=== PATIENT | female | born 1995 | race Caucasian/White ===

== ENCOUNTER 2017-03-01 22:13 | Emergency (ER) | payer OTHER, MEDICAID ==
[2017-03-01 22:18] VITALS: BP 130/89
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
[2017-03-01] MEDS ORDERED: Ibuprofen ADULT LIQ* 600 MG/30 ML UDC PO ONE (23:25)
[2017-03-02] MEDS ORDERED: Ibuprofen TAB* 600 MG ONE (00:54)
--- NOTE | 2017-03-02 07:50 | RAD ---
INDICATION: Left hand injury. TECHNIQUE: 4 views of the left hand were obtained. FINDINGS: The bones are in normal alignment. No fracture is seen. Joint spaces appear maintained. IMPRESSION: NO EVIDENCE FOR FRACTURE. IF THE PATIENT'S SYMPTOMS PERSIST RECOMMEND FOLLOW-UP IMAGING.
== END 2017-03-02 00:50 | disposition home or self-care (01) ==
LOC: ED 22:13
DX: S69.92XA Unspecified injury of left wrist, hand and finger(s), initial encounter (principal); W22.8XXA Striking against or struck by other objects, initial encounter; Y93.9 Activity, unspecified; Y92.811 Bus as the place of occurrence of the external cause; F41.0 Panic disorder [episodic paroxysmal anxiety]; F32.9 Major depressive disorder, single episode, unspecified; F43.10 Post-traumatic stress disorder, unspecified; Z88.1 Allergy status to other antibiotic agents; Z87.891 Personal history of nicotine dependence
CPT/HCPCS: 99282; A9270-GY

== ENCOUNTER 2019-01-23 15:48 | Emergency (ER) | payer OTHER, MEDICAID ==
[2019-01-23 15:59] VITALS: BP 141/93
--- NOTE | 2019-01-23 17:05 | UC ---
Upper Extremity HPI - HPI Summary HPI Summary: 23 year old female with no PMH presents with right sided shoulder pain x 2-3 days. 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 Has had similar pain in past, however not as severe. No numbness, tingling, no decreased strength. hand works well. no prior injuries, no trauma. - History of Current Complaint Chief Complaint: UCUpperExtremity Stated Complaint: SHOULDER, NECK PAIN Time Seen by Provider: 01/23/19 16:44 Hx Obtained From: Patient Hx Last Menstrual Period: 12/22/18 ?: No Onset/Duration: Sudden Onset, Lasting Days Severity Initially: Moderate Severity Currently: Severe Pain Intensity: 6 Pain Scale Used: 0-10 Numeric Location Of Pain: Is Discrete @ - right shoulder Aggravating Factor(s): Movement Alleviating Factor(s): Rest Associated Signs And Symptoms: Negative: Weakness, Numbness/Tingling - Allergies/Home Medications Allergies/Adverse Reactions: Allergies Allergy/AdvReac Type Severity Reaction Status Date / Time amoxicillin Allergy Intermediate Unknown Verified 01/23/19 15:59 Reaction Details Home Medications: Home Medications Norethindrone-E.estradiol-Iron [Melodetta 24 Fe Chewable Tab] 1 chw PO DAILY WITH MEAL 01/23/19 [History Confirmed 01/23/19] PMH/Surg Hx/FS Hx/Imm Hx Previously Healthy: Yes - Surgical History Surgical History: None Surgery Procedure, Year, and Place: Minor skin surgery- removal of cyst (10/2014 ) - Family History Known Family History: Positive: Other - depression, Non-Contributory - Social History Alcohol Use: Weekly Alcohol Amount: every other weekend at parties, drinks "to get drunk." Substance Use Type: Marijuana Smoking Status (MU): Former Smoker - Immunization History Most Recent Influenza Vaccination: declined flu shot Most Recent Tetanus Shot: unknown Most Recent Pneumonia Vaccination: never Review of Systems All Other Systems Reviewed And Are Negative: Yes Constitutional: Negative: Fever, Chills, Fatigue Skin: Negative: Bruising Respiratory: Negative: Cough Cardiovascular: Negative: Chest Pain Musculoskeletal: Positive: Arthralgia, Decreased ROM, Myalgia. Negative: Edema Neurological: Positive: Negative Psychological: Positive: Negative Is Patient Immunocompromised?: No Physical Exam Triage Information Reviewed: Yes Appearance: Well-Appearing, No Pain Distress, Well-Nourished Vital Signs: Initial Vital Signs Temp 96.8 F 01/23/19 15:56 Pulse 97 01/23/19 15:56 Resp 18 01/23/19 15:56 BP 141/93 01/23/19 15:56 Pulse Ox 100 01/23/19 15:56 Vital Signs Reviewed: Yes Eyes: Positive: Conjunctiva Clear ENT: Positive: Hearing grossly normal Neurological: Positive: Other: - RIght shoulder with TTP superior to scapular spine, over trap, mild SCM tenderness, + biceps tenderness, + speed, neg infraspin testing, neg bear, neg belly, 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 full cervical motion, no cervical spine tenderness. rad/ ulnar pulses 2+ b/l. SITLT. full elbow ROM, strength. Psychological Exam: Normal Skin Exam: Normal Upper Extremity Course/Dx - Course Course Of Treatment: Tendonitis - Increase fluid intake while taking Motrin - Flexeril as needed for muscle spasms - Increase rest - Heat/ Ice as needed - Work note given - Follow up with orthopedics within 5-7 days if no improvement - Go to ER with increased pain, numbness, decreased strength - Differential Dx/Diagnosis Differential Diagnosis/HQI/PQRI: Strain, Sprain Provider Diagnosis: Tendonitis of shoulder, Muscle strain Discharge ED - Sign-Out/Discharge Documenting (check all that apply): Patient Departure All imaging exams completed and their final reports reviewed: No Studies - Discharge Plan Condition: Good Disposition: HOME Prescriptions: Cyclobenzaprine TAB* [Flexeril 10 MG TAB*] 10 mg PO TID PRN #15 tab PRN Reason: muscle spasm Ibuprofen ADULT LIQ* [Motrin LIQ ADULT*] 600 mg PO QID #[id number] mg Patient Education Materials: Muscle Strain (ED) Forms: *Work Release Referrals: No Primary Care Phys,[facility]OPCP [Primary Care Provider] - [facility] [Outside] Additional Instructions: - Increase fluid intake while taking Motrin - Flexeril as needed for muscle spasms - Increase rest - Heat/ Ice as needed - Work note given - Follow up with orthopedics within 5-7 days if no improvement - Go to ER with increased pain, numbness, decreased strength - Billing Disposition and Condition Condition: GOOD Disposition: Home - Attestation Statements Provider Attestation: Per institutional requirements, I have reviewed the chart, however, I was not consulted specifically or made aware of this patient by the midlevel provider. I did not personally evaluate, interact with , or disposition this patient.
== END 2019-01-23 17:25 | disposition home or self-care (01) ==
LOC: UCEAST 15:48
DX: M75.91 Shoulder lesion, unspecified, right shoulder (principal); S46.911A Strain of unspecified muscle, fascia and tendon at shoulder and upper arm level, right arm, initial encounter; Z88.0 Allergy status to penicillin; Z87.891 Personal history of nicotine dependence; X50.0XXA Overexertion from strenuous movement or load, initial encounter; Y93.89 Activity, other specified; Y92.89 Other specified places as the place of occurrence of the external cause; Y99.0 Civilian activity done for income or pay
CPT/HCPCS: 99212; G0463

== ENCOUNTER 2019-05-06 21:40 | Emergency (ER) | payer OTHER, MEDICAID ==
--- OUTSIDE RECORDS SUMMARY | 2019-05-06 22:05 | XMS REPORT | Summary of Care ---
:1995 Author Organization [facility] Address [address] [place] [address] Care Team Providers Name Role Phone None, [place] Primary Care Provider Unavailable Reason for Referral Refer to Department Only (Routine) Status Reason Specialty Diagnoses / Referred By Referred To Procedures Contact Contact Pending Review DERMATOLOGY / Diagnoses Dermatitis Gloria, Dermatology YENNI Perkins [address] [place] [address] Reason for Visit Reason Comments Establish Care joint pain, skin issues, headaches, losing hair Encounter Details Date Type Department Care Team Description 05/02/2019 Office Visit [place] Maddie Izquierdo, Dermatitis ( Primary Dx); Practice [employer] Encounter to establish care [address] [facility] [address] [place], [place] [id number] [place] [address] [phone] Allergies Active Allergy Reactions Severity Noted Date Comments Amoxicillin Unknown Reaction 06/09/2018 documented as of this encounter (statuses as of 05/02/2019) Medications Medication Sig Dispensed Refills Start Date End Date Status methylphenidate (RITALIN) Take 5 mg by 0 Active 5 MG Oral Tab mouth TWO TIMES DAILY NEEDED. Ferrous Sulfate (IRON Take 1 Tab by 0 Active HIGH-POTENCY) 325 MG Oral mouth DAILY. Tab Norethin Robert-Eth Take by mouth 0 Active Estrad-FE (MELODETTA 24 DAILY. FE) 1-20 MG-MCG(24) Oral Chew Tab hyoscyamine (LEVSIN Take 1 Tab by 120 Tab 3 06/15/2018 Active SL/PO) 0.125 MG mouth FOUR Sublingual SL Tab TIMES DAILY. Omeprazole 40 MG Oral Take 1 Cap by 30 Cap 3 06/15/2018 Active CAPSULE DELAYED RELEASE mouth DAILY. documented as of this encounter (statuses as of 05/02/2019) Active Problems Problem Noted Date Former smoker 06/09/2018 Diarrhea 06/09/2018 Anemia 06/09/2018 documented as of this encounter (statuses as of 05/02/2019) Social History Tobacco Use Types Packs/Day Years Used Date Former Smoker Quit: 2016 Smokeless Tobacco: Never Used Alcohol Use Drinks/Week oz/Week Comments Not Currently Sex Assigned at Date Recorded Not on file Job Start Date Occupation Industry Not on file Not on file Not on file Travel History Travel Start Travel End No recent travel history available. documented as of this encounter Last Filed Vital Signs Vital Sign Reading Time Taken Comments Blood Pressure 128/66 05/02/2019 9:01 AM EST Pulse 51 05/02/2019 9:01 AM EST Temperature 36.8 05/02/2019 9:01 AM EST C (98.2 F) Respiratory Rate - - Oxygen Saturation 99% 05/02/2019 9:01 AM EST Inhaled Oxygen Concentration - - Weight 99.3 kg (219 lb) 05/02/2019 9:01 AM EST Height 170.2 cm (5' 7") 05/02/2019 9:01 AM EST Body Mass Index 34.3 05/02/2019 9:01 AM EST documented in this encounter Patient Instructions Patient InstructionsMaddie Csatro NP - 05/02/2019 9:00 AM ESTDo lab work today. Referral is in for dermatology - please work on scheduling this on your way out today. Follow up will depend on results. Think about the pap smear - [facility] And schedule a physical exam at some point please. For Eczema - Use an emollient cream - such as Cetaphil or Cerave - daily. Take a bath daily with warm water (not too hot) and for no longer than 10 minutes. Use a mild, scent free soap. Pat dry with a towel (no rubbing). Apply cream right after bathing while your skin is still slightly damp. You can use hydrocortisone cream over the counter on spots that flare up - use once or twice daily before putting on the emollient cream for up to 2 weeks. Avoid triggers - such as heat, low humidity, stress, and allergens Using a humidifier can be helpful. Patient Education Eczema (Atopic Dermatitis) The Basics Written by the doctors and editors at [facility] What is eczema? Eczema is a skin condition that makes your skin itchy and flaky. Doctors do not know what causes it. Eczema often happens in people who have allergies. It can also run in families. Another term for eczema is "atopic dermatitis." What are the symptoms of eczema? The symptoms of eczema can include: Intense itching Redness Small bumps Skin that flakes off or forms scales Most people with eczema have their first symptoms before they turn 5. But eczema can look different in people of different ages: In babies, eczema tends to affect the front of the arms and legs, cheeks, or scalp. (The diaperarea is not usually affected.) In older children andadults, eczema often affects the sides of the neck, the elbow creases, andthe backs of the knees. Adults can also get it on their wrists, hands, forearms, and face. In older children and adults, the skin can become thick and dark, and can even form scars from too much scratching. Is there a test for eczema? No, there is no test. But doctors and nurses can tell if you haveeczema it by looking at your skin and by asking you questions. What can I do to reduce my symptoms? Use unscented thick moisturizing creams and ointments tokeep the skin from getting too dry. Also, try to avoid things that can make eczema worse, such as: Having dry skin that has not been treated with moisturizing creams or ointments Being too hot or sweating too much Being in very dry air Stress or worry Sudden temperature changes Harsh soaps or cleaning products Perfumes Wool or synthetic fabrics (like polyester) How is eczema treated? There are treatments that can relieve the symptoms of eczema. But the condition cannot be cured. Even so, about half of children with eczema grow out of it by the time they become adults. The treatments for eczema include: Moisturizing creams or ointments These products help keep your skin moist. In some cases, your doctor or nurse might suggest using a moist dressing over special creams or medicines. It helps to put on your cream or ointment right after a bath or shower. Some people also try products that you put in the bathtub, such as oil or oatmeal. But these have been found not to help with eczema symptoms. Steroid creams and ointments These are not the same as the steroids athletes some athletes take illegally. They go on the skin, and they relieve itching and redness. (In severe cases, you might need steroids in pills. But your doctor or nurse will want to take you off steroid pills as soonas possible. Even though these medicines help, they can also cause problems of their own.) Medicines that change the way the immune system works These medicines are only for people who do not get better with safer treatment options. Antihistamine pills Antihistamines are the medicines people often take for allergies. Some people with eczema find that antihistamines relieve itching. Others do not think the medicines do any good. Many people with eczema find that itching is worst at night. That can make it hard to sleep. If you have this problem, talk with your doctor or nurse about it. He or she might recommend an antihistamine that can also help with sleep. Light therapy Another treatment option is something called "light therapy," but doctors do not use it much. During light therapy, your skin is exposed to a special kind of light called ultraviolet light. This therapy is usually done in a doctor's office. Light therapy can help with eczema but experts worry that it might increase a person's risk for skincancer. Doctors usually recommend it for people who do not get better with other treatments. Talk to your doctor or nurse if your eczema is making you feel very anxious or sad. There are treatments that can help. Can eczema be prevented? Maybe. Babies who have a parent, brother, or sister with eczema havea higher risk of getting it, too. In these babies, using moisturizing creams or ointments (starting right after ) might help prevent eczema during the first year. But doctors don't yet know if this also helps prevent eczema later on. All topics are updated as new evidence becomes available and our peer review process is complete. This topic retrieved from [employer] on: Feb 06, 2019. Topic 42867 Version 13.0 Release: 27.4.5 - C27.318 2019 [employer]. and/or its affiliates. All rights reserved. Consumer Information Use and Disclaimer This information is not specific medical advice and does not replace information you receive from your health care provider. This is only a brief summary of general information. It does NOT include allinformation about conditions, illnesses, injuries, tests, procedures, treatments, therapies, discharge instructions or life-style choices that may apply to you. You must talk with your health care provider for complete information about your health and treatment options. This information should not beused to decide whether or not to accept your health care provider's advice, instructions or recommendations. Only your health care provider has the knowledge and training to provide advice that is right for you.The use of [employer] content is governed by the [employer] Terms of Use. 2019 [employer]. All rights reserved. Copyright 2019 [employer]. and/or its affiliates. All rights reserved. documented in this encounter Progress Notes Maddie Castro NP - 05/02/2019 9:00 AM EST PATIENT: Shi Mojica : 1995 DATE OF SERVICE: 05/02/2019 Subjective SUBJECTIVE: Shi Mojica is a 23-y.o. female here to establish care. Prior PCP: [facility]. Not taking her insurance any longer. Current Concerns: Joint pain - both knees, right now left, but switches back and forth - x2 years. Went to health center at [facility] and told to lose weight. Knees stiff. Did an xray, normal. Getting progressively worse, can't fully straighten or bend her left leg - feels locked up, and can't put pressure on it. Stabbing pain inside the knee. Has to sleep with pillows under her leg. Any position for too long will start to hurt. Left one now for 2 months, in the past was the right one. Unable to kneel on her knees x2 years. Can't squat without pain. Also right shoulder - a couple of months ago just started hurting for a few days with no injury thatshe knows of - went to urgent care and thought it was work related, works at a [employer], thought repetitive, then also couldn't move her right arm for a bit. She was given musclerelaxers and told it will get better in a week or two, or follow up with pcp. Stiffness is now better, but took 1.5 months before she could use it normally. When picking up anything heavier than 10-15 lbs feels weak/unstable. Both hands, and all fingers starting to have pain in them. Sensitive to temperature or being held in one position for a long time - was a holding a spoon the other day for a period of time and then couldn't unbend her fingers. Jaw - if she opens her jaw too wide, jaw feels unstable, then her face swells up and she can't speaknormally for a bit - usually happens at night and then better by morning. Skin - eczema on hands - cracked, sometimes red dots and bumps, clear dots on the palms of her handsif she poked them clear fluid will come out. Forearms 2 weeks ago had either eczema or hives. Hands bleed from the cracks. Getting pits and dents on her nails. Hair is falling out of her legs - no where else. Has not shaved her legs in years, and there is large patches of missing hair on her legs. Not putting any products on her legs. No hair loss anywhere else. Lab work was done in June at [facility]: ESR = 40 KAHLIL = 1:80 CRP = 16.98 Chronic Conditions: Depression/Anxiety: therapist every week. Specialists: GI - Gissel Rodrigues, [employer] - Diarrhea - no underlying pathology, recommended FODMAP diet and prn follow up. Wasn't able to afford the diet and couldn't make the changes. Still having problems although not as bad. She realized that lying down exacerbated so now up more during the day and this is helpful. Stopped taking the omeprazole and the levsin - although these helped at the time. Health Maintenance: On control to help regulate her period. Had an ultrasound with some kind of polyp. No pcos,thyroid was ok. Pap (21-65): Never had. Past Medical History: Diagnosis Date Anemia Anxiety Depression Disorder of function of stomach Family History Problem Relation Age of Onset Alcohol/Drug Mother Arthritis Father RA Asthma Sister Asthma Brother No Known Problems Brother Cancer No family history Current Outpatient Medications Medication Sig Ferrous Sulfate (IRON HIGH-POTENCY) 325 MG Oral Tab Take 1 Tab by mouth DAILY. hyoscyamine (LEVSIN SL/PO) 0.125 MG Sublingual SL Tab Take 1 Tab by mouth FOUR TIMES DAILY. methylphenidate (RITALIN) 5 MG Oral Tab Take 5 mg by mouth TWO TIMES DAILY NEEDED. Norethin Robert-Eth Estrad-FE (MELODETTA 24 FE) 1-20 MG-MCG(24) Oral Chew Tab Take by mouth DAILY. Omeprazole 40 MG Oral CAPSULE DELAYED RELEASE Take 1 Cap by mouth DAILY. No current facility-administered medications for this visit. Allergies Allergen Reactions Amoxicillin Unknown Reaction Social History Socioeconomic History Marital status: Single Spouse name: Not on file Number of children: Not on file Years of education: Not on file Highest education level: Not on file Occupational History Not on file Social Needs Financial resource strain: Not on file Food insecurity Worry: Not on file Inability: Not on file Transportation needs Medical: Not on file Non-medical: Not on file Tobacco Use Smoking status: Former Smoker Last attempt to quit: 2017 Years since quittin.0 Smokeless tobacco: Never Used Substance and Sexual Activity Alcohol use: Not Currently Drug use: Yes Types: Marijuana Sexual activity: Yes Partners: Female control/protection: Pill Lifestyle Physical activity Days per week: Not on file Minutes per session: Not on file Stress: Not on file Relationships Social connections Talks on phone: Not on file Gets together: Not on file Attends mormonism service: Not on file Active member of club or organization: Not on file Attends meetings of clubs or organizations: Not on file Relationship status: Not on file Intimate partner violence Fear of current or ex partner: Not on file Emotionally abused: Not on file Physically abused: Not on file Forced sexual activity: Not on file Other Topics Concern Not on file Social History Narrative Lives with partner. Works at [employer] REVIEW OF SYSTEMS: Review of Systems Constitutional: Positive for malaise/fatigue. Respiratory: Negative for cough and shortness of breath. Cardiovascular: Negative for chest pain and palpitations. Musculoskeletal: Positive for back pain, joint pain, myalgias and neck pain. Skin: Positive for rash. Negative for itching. See hpi Neurological: Negative for dizziness, tremors, speech change and headaches. Psychiatric/Behavioral: Positive for depression. Negative for substance abuse and suicidal ideas. The patient is not nervous/anxious. Objective OBJECTIVE: BP 128/66 (BP Location: Left arm, Patient Position: Sitting) | Pulse 51 | Temp 98.2 F (36.8 C) (Tympanic) | Ht 5' 7" (1.702 m) | Wt 219 lb ( 99.3 kg) | SpO2 99% | BMI 34.30 kg/m Physical Exam Vitals signs and nursing note reviewed. Constitutional: General: She is not in acute distress. Appearance: Normal appearance. She is well-developed, well-groomed and overweight. Cardiovascular: Rate and Rhythm: Normal rate and regular rhythm. Heart sounds: Normal heart sounds. No murmur. No friction rub. No gallop. Pulmonary: Effort: Pulmonary effort is normal. No respiratory distress. Breath sounds: Normal breath sounds. Skin: Comments: Dry cracked skin dorsal aspect bilat hands Small pits in finger nails, more on left hand than right Large patches of hair loss on bilat legs, no hair abnormalities elsewhere Neurological: Mental Status: She is alert. Psychiatric: Mood and Affect: Mood and affect normal. Speech: Speech normal. Behavior: Behavior normal. Behavior is cooperative. ASSESSMENT: ICD-9-CM ICD-10-CM 1. Dermatitis 692.9 L30.9 REFER TO DERMATOLOGY CELIAC DISEASE PANEL SEDIMENTATION RATE C-REACTIVE PROTEIN RHEUMATOID FACTOR ANTI NUCLEAR ANTIBODY COMPREHENSIVE METABOLIC PANEL CBC WITH DIFFERENTIAL THYROID STIMULATING HORMONE T3, TOTAL FREE T4 CELIAC DISEASE PANEL SEDIMENTATION RATE C-REACTIVE PROTEIN RHEUMATOID FACTOR ANTI NUCLEAR ANTIBODY COMPREHENSIVE METABOLIC PANEL CBC WITH DIFFERENTIAL THYROID STIMULATING HORMONE T3, TOTAL FREE T4 CELIAC DISEASE PANEL 2. Encounter to establish care V65.8 Z76.89 Plan PLAN: 1. Dermatitis Differentials include celiac, lupus, alopecia areata, thyroid. Will do blood work, refer to dermatology. Possible rheum referral depending on results. - REFER TO DERMATOLOGY; Future - CELIAC DISEASE PANEL; Future - SEDIMENTATION RATE; Future - C-REACTIVE PROTEIN; Future - RHEUMATOID FACTOR; Future - ANTI NUCLEAR ANTIBODY; Future - COMPREHENSIVE METABOLIC PANEL; Future - CBC WITH DIFFERENTIAL; Future - THYROID STIMULATING HORMONE; Future - T3, TOTAL; Future - FREE T4; Future - CELIAC DISEASE PANEL - SEDIMENTATION RATE - C-REACTIVE PROTEIN - RHEUMATOID FACTOR - ANTI NUCLEAR ANTIBODY - COMPREHENSIVE METABOLIC PANEL - CBC WITH DIFFERENTIAL - THYROID STIMULATING HORMONE - T3, TOTAL - FREE T4 - CELIAC DISEASE PANEL 2. Encounter to establish care Old records already in scans, no recent visits otherwise. Follow up will depend on results -Consider scheduling pap and physical, not enough time at todays OV to get to rest of health maintenance. Author: Maddie Castro NP 05/02/2019 11:07 documented in this encounter Plan of Treatment Name Type Priority Associated Diagnoses Date/Time CELIAC DISEASE PANEL Lab Routine Dermatitis 05/02/2019 10:29 AM EST SEDIMENTATION RATE Lab Routine Dermatitis 05/02/2019 10:29 AM EST C-REACTIVE PROTEIN Lab Routine Dermatitis 05/02/2019 10:29 AM EST RHEUMATOID FACTOR Lab Routine Dermatitis 05/02/2019 10:29 AM EST ANTI NUCLEAR ANTIBODY Lab Routine Dermatitis 05/02/2019 10:29 AM EST COMPREHENSIVE METABOLIC Lab Routine Dermatitis 05/02/2019 10:29 AM EST PANEL CBC WITH DIFFERENTIAL Lab Routine Dermatitis 05/02/2019 10:29 AM EST THYROID STIMULATING HORMONE Lab Routine Dermatitis 05/02/2019 10:29 AM EST T3, TOTAL Lab Routine Dermatitis 05/02/2019 10:29 AM EST FREE T4 Lab Routine Dermatitis 05/02/2019 10:29 AM EST CELIAC DISEASE PANEL Lab Routine Dermatitis 05/02/2019 10:29 AM EST Name Type Priority Associated Diagnoses Order Schedule CELIAC DISEASE PANEL Lab Routine Dermatitis Expected: 05/02/2019 (Approximate), Expires: 05/02/2020 SEDIMENTATION RATE Lab Routine Dermatitis Expected: 05/02/2019 (Approximate), Expires: 05/02/2020 C-REACTIVE PROTEIN Lab Routine Dermatitis Expected: 05/02/2019 (Approximate), Expires: 05/02/2020 RHEUMATOID FACTOR Lab Routine Dermatitis Expected: 05/02/2019 (Approximate), Expires: 05/02/2020 ANTI NUCLEAR ANTIBODY Lab Routine Dermatitis Expected: 05/02/2019 (Approximate), Expires: 05/02/2020 COMPREHENSIVE METABOLIC Lab Routine Dermatitis Expected: 05/02/2019 PANEL (Approximate), Expires: 05/02/2020 CBC WITH DIFFERENTIAL Lab Routine Dermatitis Expected: 05/02/2019 (Approximate), Expires: 05/02/2020 THYROID STIMULATING HORMONE Lab Routine Dermatitis Expected: 05/02/2019 (Approximate), Expires: 05/02/2020 T3, TOTAL Lab Routine Dermatitis Expected: 05/02/2019 (Approximate), Expires: 05/02/2020 FREE T4 Lab Routine Dermatitis Expected: 05/02/2019 (Approximate), Expires: 05/02/2020 Name Type Priority Associated Diagnoses Order Schedule REFER TO DERMATOLOGY Referral Routine Dermatitis Expected: 05/02/2019, Expires: 05/02/2020 Health Maintenance Due Date Last Done Comments CHLAMYDIA SCREENING 1995 DTaP/Tdap/Td Vaccines ( - 09/12/2006 Tdap) HPV IMMUNIZATION SERIES ( - 09/12/2006 Female 2-dose series) HIV SCREENING 09/12/2010 PAP SMEAR 09/12/2016 INFLUENZA VACCINE (#1) 2018 DEPRESSION SCREENING 05/02/2020 05/02/2019, 05/02/2019 HEPATITIS A IMMUNIZATION Aged Out No longer eligible based SERIES on patient's age to complete this topic MENINGOCOCCAL VACCINE IMM Aged Out No longer eligible based on patient's age to complete this topic PNEUMOCOCCAL 0-64 YRS Aged Out No longer eligible based on patient's age to complete this topic documented as of this encounter Results Not on filedocumented in this encounter Visit Diagnoses Diagnosis Dermatitis Contact dermatitis and other eczema, due to unspecified cause Encounter to establish care Other reasons for seeking consultation documented in this encounter Insurance Payer Benefit Plan / Subscriber ID Effective Dates Phone Address Type Group [place] xxxxxxxx 2018-Present [place] xxxxx[place] 2018-[place] documented as of this encounter
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
[2019-05-07] MEDS ORDERED: Al Hydrox/Mg Hydrox/Simet LIQ* 30 ML UDC PO ONE (00:53)
[2019-05-07] MEDS ORDERED: Lidocaine 2% VISCOUS* 15 ML UDC PO ONE (00:53)
[2019-05-07 01:17] VITALS: BP 133/74
== END 2019-05-07 01:16 | disposition home or self-care (01) ==
LOC: ED 21:40
DX: R13.10 Dysphagia, unspecified (principal); R06.02 Shortness of breath; Z88.0 Allergy status to penicillin; Z87.891 Personal history of nicotine dependence
CPT/HCPCS: 99282; A9270-GY

== ENCOUNTER 2019-05-08 22:38 | Emergency (ER) | payer OTHER, MEDICAID ==
--- OUTSIDE RECORDS SUMMARY | 2019-05-08 23:17 | XMS REPORT | Summary of Care ---
:1995 Author Organization [facility] Address [address] [place] [address] Care Team Providers Name Role Phone None, Welch Primary Care Provider Unavailable Reason for Visit Reason Comments ER F/U [facility] 05/06/19 for possible object in throat Encounter Details Date Type Department Care Team Description 05/08/2019 Office Visit [facility], Maddie, [facility] PLACEMENT DIRECTOR (Primary Dx) [address] [place] [address] [phone] Allergies Active Allergy Reactions Severity Noted Date Comments Amoxicillin Unknown Reaction 06/09/2018 documented as of this encounter (statuses as of 05/08/2019) Medications Medication Sig Dispensed Refills Start Date [...] as of this encounter (statuses as of 05/08/2019) Active Problems Problem Noted Date Former smoker 06/09/2018 Diarrhea 06/09/2018 Anemia 06/09/2018 documented as of this encounter (statuses as of 05/08/2019) Social History Tobacco Use Types Packs/Day Years Used Date Former Smoker Quit: 2017 Smokeless Tobacco: Never Used Alcohol Use Drinks/Week oz/Week Comments Not Currently Sex Assigned at Date Recorded Not on file Job Start Date Occupation Industry Not on file Not on file Not on file Travel History Travel Start Travel End No recent travel history available. documented as of this encounter Last Filed Vital Signs Vital Sign Reading Time Taken Comments Blood Pressure 126/72 05/08/2019 10:17 AM EST Pulse 102 05/08/2019 10:17 AM EST Temperature 37.7 05/08/2019 10:17 AM EST C (99.8 F) Respiratory Rate - - Oxygen Saturation 98% 05/08/2019 10:17 AM EST Inhaled Oxygen Concentration - - Weight 97.5 kg (215 lb) 05/08/2019 10:17 AM EST Height 170.2 cm (5' 7") 05/08/2019 10:17 AM EST Body Mass Index 33.67 05/08/2019 10:17 AM EST documented in this encounter Patient Instructions Patient InstructionsMaddie Castro NP - 05/08/2019 10:00 AM ESTEndoscopy is tomorrow (05/09/19) at 12:45 pm. No food or drink for 6 hours prior (per Dr. Cancino you can have small sips of clear liquids but nothingelse). In the meantime, if you develop any trouble breathing, or you start having difficulty with your secretions (you can't swallow your saliva) please go back to the ER. documented in this encounter Progress Notes Maddie Castro NP - 05/08/2019 10:00 AM EST PATIENT: Shi Mojica : 1995 DATE OF SERVICE: 05/08/2019 CHIEF COMPLAINT: Chief Complaint Patient presents with ER F/U [facility] 05/06/19 for possible object in throat Subjective HISTORY OF PRESENT ILLNESS: Shi Mojica is a 23-y.o. female. HPI Review of the hospitalization: I am seeing for transition of care following Emergency Room evaluation at [facility]. The date of emergency room visit was 05/06/19 I reviewed the emergency room note, discharge instructions, and pertinent additional documentation obtained during the visit. I reconciled the medications. Eating a hamburger on 05/05/19 and felt a piece lodge in her throat. Has very slowly moved lower in her throat. Went to the ED on 05/06/19 because she felt like she couldn't breath as easily and the feeling was making her anxious. Not able to eat anything solid because it gets stuck in her throat, is able to eat soft foods like yogurt and soup. Feels like "breathing around something". Nothing in lungs. Able to manage her secretions. No imaging done, no labs done. ER gave her a GI cocktail with lidocaine which numbed her throat, then dc home with advise to followup with PCP in 3 days - she originally made an appointment for Tuesday but was called by us yesterdayto move her appointment up to today. Pain in throat started yesterday afternoon, worse when trying to eat. Speech is normal - thinks mildly hoarse. Does not feel like any problems with lungs. The tests that were not available at the time of discharge were reviewed. Additional tests which are not yet available include: N/a no testing done. Past Medical History: Diagnosis Date Anemia Anxiety [...] file Gets together: Not on file Attends zoroastrianism service: Not on file Active member of [...] History Narrative Lives with partner. Works at [employer] (on [employer] Over the last 2 weeks, have you been feeling down, depressed, anxious, or hopeless?: 3 Over the past 2 weeks, have you felt little interest or pleasure in doing things ?: 3 Trouble falling or staying asleep, or sleeping too much?: 2 Feeling tired or having little energy?: 3 Poor appetite or overeating?: 3 Feeling bad about yourself or that you are a failure or have let yourself or your family down?: 1 Trouble concentrating on things, such as reading the newspaper or watching TV?: 0 Moving or speaking so slowly that other people notice OR being fidgety and restless?: 0 Thoughts that you would be better off or of hurting yourself in some way?: 0 PHQ-9 TOTAL SCORE: 15 How difficult have these problems made it for you to do your work, take care of things at home or get along with people?: Somewhat difficult In the past 2 years, have you felt depressed or sad most days, even if you felt ok?: Yes REVIEW OF SYSTEMS: Review of Systems Constitutional: Negative for chills and fever. HENT: Positive for sore throat. Negative for congestion. Respiratory: Positive for cough (has had 2 coughing fits "like gag reflex was triggered" had to spita lot). Negative for shortness of breath. Cardiovascular: Negative for chest pain and palpitations. Gastrointestinal: Positive for diarrhea (since Tuesday - but also has this chronically. ) and nausea (not new). Negative for constipation and vomiting. Genitourinary: Negative for dysuria, frequency and urgency. Musculoskeletal: Negative for neck pain. Neurological: Positive for headaches. Negative for dizziness. Objective PHYSICAL EXAM: VITALS: BP 126/72 (BP Location: Left arm, Patient Position: Sitting) | Pulse 102 | Temp 99.8 F (37.7 C) (Tympanic) | Ht 5' 7" (1.702 m) | Wt 215 lb (97.5 kg) | SpO2 98% | BMI 33.67 kg/m Body mass index is 33.67 kg/m . Physical Exam Vitals signs and nursing note reviewed. Constitutional: General: She is not in acute distress. Appearance: Normal appearance. She is well-developed and overweight. She is not ill-appearing. HENT: Mouth/Throat: Lips: [place]. Mouth: Mucous membranes are moist. Pharynx: Posterior oropharyngeal erythema (Linear areas of erythemia on pharynx) present. No pharyngeal swelling, oropharyngeal exudate or uvula swelling. Tonsils: No tonsillar exudate or tonsillar abscesses. Swellin+ on the right. 1+ on the left. Comments: No foreign body visible on exam. Neck: Musculoskeletal: Full passive range of motion without pain. No edema or pain with movement. Thyroid: No thyroid mass, thyromegaly or thyroid tenderness. Vascular: No carotid bruit. Trachea: Trachea normal. No tracheal tenderness, abnormal tracheal secretions or tracheal deviation. Cardiovascular: Rate and Rhythm: Normal rate and regular rhythm. Heart sounds: Normal heart sounds. No murmur. No friction rub. No gallop. Pulmonary: Effort: Pulmonary effort is normal. No respiratory distress. Breath sounds: Normal breath sounds. Lymphadenopathy: Head: Right side of head: No submental, submandibular, tonsillar, preauricular or posterior auricular adenopathy. Left side of head: No submental, submandibular, tonsillar, preauricular or posterior auricular adenopathy. Cervical: No cervical adenopathy. Upper Body: Right upper body: No supraclavicular adenopathy. Left upper body: No supraclavicular adenopathy. Neurological: Mental Status: She is alert. Psychiatric: Mood and Affect: Mood and affect normal. Speech: Speech normal. Behavior: Behavior normal. Behavior is cooperative. ASSESSMENT / IMPRESSION: ICD-9-CM ICD-10-CM 1. Globus sensation 306.4 R09.89 Plan Coordination of care. - Additional testing related to hospitilization was requested today: yes See orders. I confirmed the patient's understanding of the diagnosis and plan of care. Specific education that was provided today: 1. Globus sensation -Discussed with Dr. Cancino - she would like to do EGD when patient has been fasting for 4-6 hours - patient has to work later today, per Dr. Cancino ok to do tomorrow morning or early afternoon. -Scheduled for EGD at 12:45pm tomorrow - patient at work until noon. Dr. Cancino ok with this time. -Warning signs to go to ED - difficulty breathing, difficulty managing secretions. Author: Maddie Castro NP 05/08/2019 06:19 Author: Maddie Castro NP 05/08/2019 11:50 documented in this encounter Plan of Treatment Date Type Specialty Care Team Description 05/09/2019 GI Procedure Gastroenterology Lisa Cancino MD [address] [place] [address] [phone] Health Maintenance Due Date Last Done Comments [...] filedocumented in this encounter Visit Diagnoses Diagnosis Globus sensation Gastrointestinal malfunction arising from mental factors documented in this encounter Insurance Payer Benefit Plan / Subscriber ID Effective Dates Phone Address Type Group [place] xxxxxxxx 2018-Present [place] x[place] 2018-Present [place] documented as of this encounter
[2019-05-09] MEDS ORDERED: Ibuprofen ADULT LIQ* 600 MG/30 ML UDC PO ONE (00:37)
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
[2019-05-09 01:35] LABS: ABS Basophils 0.1 10^3/ul (0-0.2); ABS Eosinophils 0.1 10^3/ul (0-0.6); ABS Lymphocytes 3.2 10^3/ul (1.0-4.8); ABS Monocytes 0.9 10^3/ul (0-0.8); ABS Neutrophils 8.2 10^3/ul (1.5-7.7); Eosinophil % 0.6 %; Hematocrit 36 % (35-47); Hemoglobin 11.9 g/dL (12.0-16.0); Lymphocyte % 26.1 %; Mean Corpuscular HGB Conc 33 g/dL (31-36); Mean Corpuscular Hemoglobin 27 pg (27-31); Mean Corpuscular Volume 82 fL (80-97); Mean Platelet Volume 8.8 fL (7.4-10.4); Nucleated Red Blood Cells % 0.1; Platelet Count 251 10^3/uL (150-450); Red Blood Count 4.39 10^6 /uL (3.70-4.87); Red Cell Distribution Width 16 % (10-15); White Blood Count 12.4 10^3/uL (3.5-10.8)
[2019-05-09 02:08] LABS: Albumin 3.8 g/dL (3.2-5.2); Anion Gap 11 mmol/L (2-11); CO2 Carbon Dioxide 22 mmol/L (22-32); Calcium 8.8 mg/dL (8.6-10.3); Chloride 104 mmol/L (101-111); Potassium 4.2 mmol/L (3.5-5.0); Sodium 137 mmol/L (135-145)
[2019-05-09 02:14] LABS: ALT 20 U/L (7-52); AST 23 U/L (13-39); Albumin/Globulin Ratio 1.2 (1-3); Alkaline Phosphatase 67 U/L (34-104); BUN/Creatinine Ratio 8.8 (8-20); Blood Urea Nitrogen 5 mg/dL (6-24); C Reactive Protein 11.56 mg/L (<8.01); EGFR Non-African American 131.4 (>60); Globulin 3.3 g/dL (2-4); Glucose 93 mg/dL (70-100); Total Protein 7.1 g/dL (6.4-8.9)
[2019-05-09 02:26] LABS: HCG Pregnancy < 0.60 mIU/mL
[2019-05-09 02:28] VITALS: BP 136/86
== END 2019-05-09 02:28 | disposition home or self-care (01) ==
LOC: ED 22:38
DX: R07.89 Other chest pain (principal); F41.9 Anxiety disorder, unspecified; F32.9 Major depressive disorder, single episode, unspecified; Z87.891 Personal history of nicotine dependence; Z88.0 Allergy status to penicillin
CPT/HCPCS: 36415; 80053; 84484; 84702; 85025; 86140; 93005; 99282; A9270-GY

== ENCOUNTER 2019-06-30 12:01 | Emergency (ER) | payer OTHER, MEDICAID ==
[2019-06-30 13:24] VITALS: BP 129/89
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
== END 2019-06-30 13:15 | disposition home or self-care (01) ==
LOC: ED 12:01
DX: T43.215A Adverse effect of selective serotonin and norepinephrine reuptake inhibitors, initial encounter (principal); Y92.9 Unspecified place or not applicable; Z88.0 Allergy status to penicillin; Z79.890 Hormone replacement therapy; F41.9 Anxiety disorder, unspecified; F32.9 Major depressive disorder, single episode, unspecified; Z87.891 Personal history of nicotine dependence
CPT/HCPCS: 99282